=== PATIENT | female | born 1975 | race Caucasian/White ===

== ENCOUNTER 2016-11-23 10:37 | Observation (INO) ==
[2016-11-23] MEDS ORDERED: Ondansetron 4 MG/2 ML VIAL IVP ONE (10:57)
[2016-11-23] MEDS ORDERED: Aspirin 325 MG TABLET PO ONE (11:18)
--- NOTE | 2016-11-23 11:18 | Emergency Department Note ---
Disposition Clinical Impression: Palpitations Chest pain Qualifiers: Chest pain type: unspecified Qualified Code(s): R07.9 - Chest pain, unspecified Disposition: Admitted As Inpatient Condition: Good Referrals: NONE,PCP [Primary Care Provider] - Forms: ED Satisfaction Letter Time of Disposition: 12:15 General Adult HPI - General Chief complaint: ED Arrhythmia/Palpitations Stated complaint: Elevated B/P/ Arrhythmia Time Seen by Provider: 11/23/16 10:43 Source: patient Mode of arrival: ambulatory Limitations: no limitations Nursing Notes Reviewed: Yes Vital Signs Reviewed: Yes - History of Present Illness HPI Narrative: 41-year-old female presenting to the emergency department with chief complaint of palpitation and chest pain. She states for the past 3 days she has been having intermittent substernal chest pressure that does not radiate. She states she also feels like her heart is fluttering. Non-exertional with spontaneous resolution. During these episodes she feels diaphoretic and nauseous. She has never had anything like this before. At home she took her blood pressure which was 160 systolic. She has no cardiac history and has no stent placements and is not on anticoagulation. She has significant family history where her father needed a CABG when he was 40 years old. She denies having hypertension, hyperlipidemia, smoking. She denies being on any hormonal treatments, long trips, unilateral leg swelling. She states she has had bilateral leg swelling on and off over the past 3 days. She states she also has shortness of breath during these episodes. The shortness of breath only occurs when she has chest pain and palpitations. She denies pain at this time. She is resting comfortably in the room with stable vital signs. Pain Scale: 0 - Related Data Previous Rx's Medication Instructions Recorded Hydrocodone/Acetaminophen [[place] 1 - 2 each PO Q6H PRN #15 tablet 06/11/15 5-325 Tablet] Ibuprofen [Motrin] 600 mg PO Q8HR PRN #20 tab 06/11/15 Allergies Allergy/AdvReac Type Severity Reaction Status Date / Time No Known Allergies Allergy Verified 06/11/15 13:39 All systems ED: reviewed and negative except as stated. Cardiovascular: Reports: chest pain, palpitations Respiratory: Reports: dyspnea Gastrointestinal: Reports: nausea Past Medical History - Past Medical History Attestation: Yes The following information was validated with the patient. Source: patient Medical history: Reports: GERD Surgical history: Reports: hysterectomy Psychiatric history: Reports: no psych history - Social History Smoking Status: Current every day smoker Smokeless Tobacco Status: No Alcohol use: Reports: none Drug use: Reports: none Physical Exam - General Limitations: no limitations General appearance: alert, in no apparent distress - Head Head exam: atraumatic, normocephalic, normal inspection - Eye Eye exam: Present: normal appearance - Neck Neck exam: Present: normal inspection - Chest Chest inspection: Present: normal inspection, symmetric chest wall rise. Absent : tenderness - Respiratory Respiratory exam: Present: normal lung sounds bilaterally. Absent: respiratory distress, wheezes, stridor - Cardiovascular Cardiovascular exam: Present: regular rate, normal rhythm, normal heart sounds - Abdominal Exam Abdominal exam: Present: soft, Non-Tender. Absent: distention, guarding, rebound - Extremities Exam Extremities exam: Present: normal inspection, full ROM - Neurological Exam Neurological exam: Present: alert, oriented X3 - Psychiatric Psychiatric exam: Present: normal affect - Skin Skin exam: Present: warm, dry, intact Course Course Narrative: 41-year-old female presenting to the emergency department with chief complaint of chest pain and palpitations. Due to significant family history and history of present illness we will begin a chest pain workup along with d-dimer. We will reevaluate the patient. She is stable in the room and is resting comfortably. - Reevaluation(s) Reevaluation #1: Follow-up or has returned within normal limits. Due to significant family history and history of present illness we will admit the patient for chest pain rule out. A call to the hospitalist was completed. Time: 11:57 Reevaluation #2: Dr. Morton accepts the patient. Time: 12:14 Vital Signs Temperature 97.8 F 11/23/16 10:39 Pulse Rate 92 11/23/16 10:39 Respiratory Rate 16 11/23/16 10:39 Blood Pressure 177/91 11/23/16 10:39 O2 Sat by Pulse Oximetry 96 11/23/16 10:39 Temperature 97.8 F 11/23/16 10:39 Pulse Rate 76 11/23/16 11:30 Respiratory Rate 18 11/23/16 11:30 Blood Pressure 147/78 11/23/16 11:30 O2 Sat by Pulse Oximetry 98 11/23/16 11:30 Oxygen Delivery Oxygen Delivery Room Air Medical Decision Making - Medical Records Medical records reviewed: Yes I reviewed the patient's medical records. - Lab Data Lab results reviewed: Yes I reviewed the patient's lab results. Lab Results 11/23/16 11/23/16 11/23/16 Range/Units 11:07 11:07 11:07 D-Dimer 392 (0-500) ng/mLFEU Troponin I 0.00 (0-0.03) ng/mL B-Natriuretic Peptide < 10 (0-100) pg/mL TSH (0.350-4.840) mcIU/mL 11/23/16 Range/Units 11:07 D-Dimer (0-500) ng/mLFEU Troponin I (0-0.03) ng/mL B-Natriuretic Peptide (0-100) pg/mL TSH 2.339 (0.350-4.840) mcIU/mL - Radiology Data Radiology results reviewed: Yes I reviewed the patient's radiology results. - EKG Data EKG #1 EKG attestation: Yes I reviewed and interpreted this EKG. EKG results narrative: 78 bpm. Normal sinus rhythm. Normal axis. KS interval 127 ms, QRS 87 ms, QTC [address] segment elevation or abnormalities noted and no signs of ischemia on this EKG. When compared to previous EKG completed on 02/13/14 no significant changes noted. Attestation Statement - Attestation Attestation: Patient was seen with resident physician. I reviewed the history, physical, assessment and plan, and agree with the findings. I also personally evaluated this patient and had [id number] time with this patient. 41-year-old female presents to the emergency department with a chief complaint of chest pain. Patient states for the last 4 days she has had intermittent chest pressure in the middle of her chest since associated with diaphoresis and the sensation of palpitations. Patient states that she has not had anything like this in the past. She has had a stress test in the past which was multiple years ago. She is a strong family history for cardiac disease which includes a mother that in her 50s and a father who had his first heart attack in his 40s. She currently is pain-free. She is not taking any medications. The symptoms occur at rest and not necessarily with activity. ED course vital signs initially blood pressure was slightly elevated but otherwise stable. ENT is unremarkable. Heart and lungs are both normal. Abdomen is soft and nontender. Extremities unremarkable. Neurologically intact. ED course initial workup included EKG which was normal. Troponin and d-dimer were both negative. Other labs are unremarkable. Because of the patient's history and age as well as her family history we will admit the patient to the hospitalist service for further evaluation and treatment and rule out. Patient was comfortable with this plan and she was comfortable on the emergency department. Agree with the resident physician assessment and plan.
[2016-11-23 12:21] LABS: Basophils % 0.3 %; Eosinophils # 0.2 K/mcL (0.0-0.6); Eosinophils % 1.3 %; Hematocrit 43.2 % (35.3-44.9); Immature Granulocytes % 0.4 % (0-4); Lymphocytes # 3.8 K/mcL (0.6-4.6); Lymphocytes % 28.4 %; Mean Corpuscular HGB Conc 34.7 g/dL (31.6-35.5); Mean Corpuscular Hemoglobin 29.2 pg (28.0-33.3); Mean Corpuscular Volume 84.2 fL (83.0-100.0); Mean Platelet Volume 8.5 fL (9.4-12.4); Monocytes % 7.2 %; Neutrophils # 8.3 K/mcL (1.6-8.9); Platelet Count 217 K/mcL (140-400); Red Blood Count 5.13 M/mcL (3.82-4.97); Red Cell Distribution Width 12.1 % (11.5-14.5); Segmented Neutrophils % 62.4 %
[2016-11-23 12:34] LABS: BUN/Creatinine Ratio 15 (6-26); Blood Urea Nitrogen 9 mg/dL (7-20); Carbon Dioxide 25 mEq/L (19-29); Chloride 106 mEq/L (98-109); Glucose 90 mg/dL (70-99); Osmolality,Calculated 282 (280-300); Potassium 4.2 mEq/L (3.5-4.5); Sodium 137 mEq/L (136-145); eGFR For African Americans > 60 (> 60); eGFR For Non-African Americans > 60 (> 60)
[2016-11-23] MEDS ORDERED: *HR* Morphine 2 MG/ML SYRINGE IVP PRN (12:36)
[2016-11-23] MEDS ORDERED: *HR* HYDROcodone/Acet 5/325 mg TABLET PO PRN (12:36)
[2016-11-23] MEDS ORDERED: Ondansetron 4 MG/2 ML VIAL IVP PRN (12:36)
[2016-11-23] MEDS ORDERED: Naloxone 0.4 MG/ML INJ IVP PRN (12:36)
--- NOTE | 2016-11-23 13:10 | Internal Med History&Physical ---
<Jonny Doan - Last Filed: 11/23/16 13:58> Date of Encounter: 11/23/16 Time of Encounter: 12:15 Assessment and Plan (1) Chest pain Current visit: Yes Status: Acute Patient presents with new onset of chest pain that she reports has been occurring since last . She reports that the pain came on while she was at rest and she also felt her heart flutter and she describes the pain as sharp pain at the sternum and across her breasts that comes and goes. She also states that she became nauseous, short of breath, and diaphoretic. The patient denies any cardiac history but reports she had an exercise stress test several years ago when she was diagnosed with sleep apnea. Patient's EKG of 02/13/14 and today both show normal sinus rhythm and normal ECG. Patient to be placed on continuous cardiac telemetry, troponins to be trended x2, and nuclear pharm stress test scheduled. Nitroglycerin ordered PRN. Patient to be bed rest with bathroom privileges. Cardiac diet ordered and patient to be NPO at midnight for a.m. stress testing. Will consider cardiology consult based on results of the nuclear pharm stress test. Patient to be monitored closely for signs of increasing cardiac and/or respiratory distress. Qualifiers: Chest pain type: other chest pain Qualified Code(s): R07.89 - Other chest pain; R07.8 - Other chest pain (2) SOB (shortness of breath) Current visit: Yes Status: Acute Patient reports mild dyspnea related to her symptoms of chest pain. Patient's SpO2 in the ED is 96% on room air and her RR is 16 and regular on examination. Patient will be placed on CPAP HS for her chronic sleep apnea. Will administer O2 via nasal cannula at 2L as well as continuous SpO2 monitoring if patient shows signs of dyspnea. Will monitor patient and vital signs. (3) HTN (hypertension) Current visit: Yes Status: Acute Patient presents with acute HTN in conjunction with her current symptoms of chest pain. Patient's BP on admission to the ED was 177/91. Patient reports her BP was elevated last night prior to bed and was 181/88. Patient currently denies any history of HTN or medications for HTN. Will monitor patient and vital signs and consider adding low-dose Lopressor if patient's BP continues to be elevated. Qualifiers: Hypertension type: other secondary hypertension Qualified Code(s): I15.8 - Other secondary hypertension (4) Sleep apnea Current visit: Yes Status: Chronic Patient presents with history of chronic sleep apnea. Patient denies use of home O2 but reports use of CPAP nightly. Will continue CPAP HS. Qualifiers: Sleep apnea type: obstructive Qualified Code(s): G47.33 - Obstructive sleep apnea (adult) (pediatric) (5) GERD (gastroesophageal reflux disease) Current visit: Yes Status: Chronic Patient presents with history of chronic GERD. IV Zofran ordered PRN. IVP Protonix 40 mg daily ordered. Qualifiers: Esophagitis presence: esophagitis presence not specified Qualified Code(s) : K21.9 - Gastro-esophageal reflux disease without esophagitis (6) DVT prophylaxis Current visit: Yes Status: Acute Patient placed on DVT prophylaxis due to admission protocol and current bedrest status. Heparin 5,000 units SQ Q8 ordered. Internal Medicine - H&P: HPI Chief complaint: Chest pain Admitted From: Emergency Dept Plans for Post Hospital Care: Home History of present illness: Mrs. Contreras is a 41 year old female who presents from the ED with chief complaint of new onset of chest pain that she reports has been occurring since last . She reports that the pain came on while she was at rest and she also felt her heart flutter and she describes the pain as sharp pain at the sternum and across her breasts that comes and goes. She also states that she became nauseous, short of breath, and diaphoretic. The patient denies any cardiac history, recent illness, vomiting, fever, chills, headache, vision changes, muscle weakness, pre-syncope, or syncope. Patient denies use of home O2 but does reports he uses CPAP HS due to sleep apnea. She reports some bilateral edema of her LEs which she states is not new as well as numbness and tingling in the soles of her feet. Currently she has minor non-pitting pedal edema bilaterally. BP was elevated upon admission to the ED and was 177/91. She reports her BP prior to going to bed was 181/88. She also denies that she has recurrent HTN. Mrs. Contreras's medical history includes GERD. Patient's EKG today and previous EKG show normal sinus rhythm and normal ECG. Patient is at moderate risk for cardiac event based on her current symptoms as well as her risk factors of tobacco abuse, BMI of 40.2, and family history of HD and CHF. Patient states she has never had an echocardiopgram that she can remember and states that she had an exercise stress test years ago when she was diagnosed with sleep apnea. Patient is placed on continuous cardiac telemetry, troponins trended 2, and nuclear pharm stress test. Patient to be monitored closely for signs of increasing cardiac and/or respiratory distress. Will consider cardiology consult based on the results of the stress test. Time spent with patient >30 minutes. Past Med Surg Social Fam HX - Past Medical History Source: patient Medical history: GERD Psychiatric history: no psych history - Past Surgical History Surgical History: hysterectomy - Social History Smoking Status: Current every day smoker Packs per day: < 1 PPD Smokeless Tobacco Status: No Alcohol use: none Drug use: none Occupational status: employed Current living situation: Home, With Family Activity Level: Independent ambulation, Very active Recent Out of Country Travel Within the Last 8 Weeks: No Exposure or Possible Exposure to Illness During Travel: No - Family History Father Race: Family Member Ethnicity: Non- Living Status: Still Living Hx Family Cardiac Disorders: Yes (OR w/stents, HTN, HD) Mother Race: Family Member Ethnicity: Non- Living Status: Age at : 56 Hx Family Cardiac Disorders: Yes (CHF) Hx Family Respiratory Disorders: Yes (Asthma) Brother Race: Family Member Ethnicity: Non- Living Status: Still Living Hx Family Medical Disorders: No Sister Race: Family Member Ethnicity: Non- Living Status: Still Living Hx Family Endocrine Disorder: Yes (Hypoglycemia) Internal Medicine - H&P: Meds Esomeprazole Magnesium [Nexium] 40 mg PO DAILY PRN 11/23/16 [History] Allergies No Known Allergies Allergy (Verified 06/11/15 13:39) All Systems PM: A 10-system review of systems was performed and is negative for pertinent findings except as documented above in the HPI. - Constitutional Constitutional: as per HPI, excessive sweating, fatigue, no chills, no fever(s) , no night sweats - EENT Eyes: no change in vision, no discharge, no pain, no photophobia Ears: no ear discharge, no ear pain, no tinnitus Nose, mouth and throat: no dysphagia, no nasal discharge, no neck pain, no sore throat - Breasts Breasts: as per HPI - Cardiovascular Cardiovascular ROS IM: as per HPI, chest pain, diaphoresis, dyspnea, edema, irregular heart rhythm - Respiratory Respiratory: as per HPI, dyspnea, no cough, no wheezing, no excessive phlegm production - Gastrointestinal Gastrointestinal: as per HPI, heartburn, nausea - Genitourinary Genitourinary: no change in urinary stream, no dysuria, no flank pain, no hematuria Menstruation: as per HPI, post hysterectomy - Musculoskeletal Musculoskeletal ROS IM: as per HPI, numbness, tingling - Integumentary Integumentary IM: no rash, no unusual bruising - Neurological Neurological ROS: no confusion, no convulsions, no focal weakness, no numbness, no tingling, no tremor(s) - Psychiatric Psychiatric: as per HPI - Endocrine Endocrine IM: as per HPI - Hematologic/Lymphatic Hematologic/Lymphatic: no easy bruising - Allergic/Immunologic Allergic/Immunologic: as per HPI - Constitutional Vitals: Temp Pulse Resp BP Pulse Ox 97.8 F 76 18 147/78 98 11/23/16 10:39 11/23/16 11:30 11/23/16 11:30 11/23/16 11:30 11/23/16 11:30 General appearance: Present: cooperative, A&O X 3, pleasant, no acute distress, obese, answers questions appropriately - Head Head exam: Present: atraumatic, normocephalic - Eye Eye exam: Present: PERRL, conjuntiva pink, sclera anicteric Pupils: Present: PERRL - ENT ENT exam: Present: normal exam, normal external ear exam - Neck Neck exam general surgery: Present: supple, trachea midline. Absent: lymphadenopathy - Respiratory Respiratory exam: Present: CTAB. Absent: accessory muscle use, rales, rhonchi, wheezes - Cardiovascular Cardiovascular exam: Present: RRR, +S1, +S2. Absent: diastolic murmur, gallop, rubs, systolic murmur - GI/Abdominal GI/Abdominal exam: Present: normal bowel sounds, soft, no peritoneal signs. Absent: distended, tenderness - Rectal Rectal exam: Present: deferred - Additional comments: exam deferred. - Extremities Exam Extremities exam: Present: pedal edema (Non-pitting bilaterally), warm, radial pulses palpable and symetrical. Absent: calf tenderness, cyanotic - Back Exam Back exam: Present: normal inspection - Neurological Exam Neurological exam: Present: CN II-XII intact, oriented X3, no focal deficits. Absent: pronater drift, facial droop, speech deficit - Psychiatric Psychiatric exam: Present: normal affect, normal mood - Skin Skin exam: Present: dry, intact Internal Med - H&P Results - Labs CBC & Chem 7: 11/23/16 12:16 11/23/16 12:16 - EKG Data EKG shows normal: sinus rhythm Rate: normal - EKG Data Prior EKG available for review: yes When compared to previous EKG: there is no significant change Interpretation IM: normal EKG EKG comments: 11/23/16 13:15 EKG dated 02/13/14 shows sinus rhythm and normal ECG. EKG dated 11/23/16 shows sinus rhythm and normal ECG. - Diagnostic Studies Chest x-ray Additional comments: Impressions Chest X-Ray 11/23/16 10:54 IMPRESSION: Negative portable study. D/ / Ara Hatch Cha, MD / Ara Hatch Cha, MD Interpreting Provider: Ara Hatch Cha, MD <Nathaniel Morton - Last Filed: 11/23/16 14:39> Date of Encounter: 11/23/16 Internal Medicine - H&P: HPI History of present illness: Ms. Contreras is a 41 year old female All Systems PM: A 10-system review of systems was performed and is negative for pertinent findings except as documented above in the HPI. - Constitutional Vitals: Temp Pulse Resp BP Pulse Ox 98.2 F 68 16 148/86 97 11/23/16 14:01 11/23/16 14:01 11/23/16 14:01 11/23/16 14:01 11/23/16 14:01 Internal Med - H&P Results - Labs CBC & Chem 7: 11/23/16 12:16 11/23/16 12:16 - Attending Attestation I have personally performed a face to face evaluation on this patient and I discussed the assessment and plan with the nurse practitioner. I have reviewed and agree with the documented care plan. History and Exam by me shows: Mrs. Contreras is a 41 year old female who presents from the ED with chief complaint of new onset of chest pain that she reports has been occurring since last . She reports that the pain came on while she was at rest and she also felt her heart flutter and she describes the pain as sharp pain at the sternum and across her breasts that comes and goes. Pt denied any cardiac work up before. She also mentioned significant FH , both parents had OR in their early 50's Gen: A, A, O x 3 Heart : S1 S2 +, RRR No murmurs Chest : DBS b/l basal, no rales / no crackles a/p 1. Acute chest pain No KEG changes trend troponins will get exercise stress test in AM since pt does have multiple risk factors 2. HTN Will start her on Metoprolol 3. Tobacco dependence counseled to quit smoking
[2016-11-23] MEDS ORDERED: Nitroglycerin 0.4 MG TAB.SUBL SL PRN (13:21)
[2016-11-23] MEDS: *HR* Heparin 5,000 UNIT/ML VIAL SQ SCH ×2 (14:19→23:26)
[2016-11-23] MEDS: Pantoprazole 40 MG VIAL IVP SCH (14:20)
[2016-11-23] MEDS ORDERED: Melatonin 3 MG TABLET PO PRN (23:18)
[2016-11-24 04:21] LABS: Basophils % 0.4 %; Eosinophils # 0.2 K/mcL (0.0-0.6); Eosinophils % 1.7 %; Hematocrit 41.5 % (35.3-44.9); Hemoglobin 14.1 g/dL (11.5-15.4); Immature Granulocytes % 0.4 % (0-4); Lymphocytes # 3.7 K/mcL (0.6-4.6); Lymphocytes % 33.4 %; Mean Corpuscular Hemoglobin 29.3 pg (28.0-33.3); Mean Corpuscular Volume 86.1 fL (83.0-100.0); Mean Platelet Volume 8.8 fL (9.4-12.4); Monocytes # 0.8 K/mcL (0.0-1.3); Monocytes % 7.3 %; Neutrophils # 6.4 K/mcL (1.6-8.9); Platelet Count 210 K/mcL (140-400); Red Blood Count 4.82 M/mcL (3.82-4.97); Red Cell Distribution Width 12.3 % (11.5-14.5); Segmented Neutrophils % 56.8 %
[2016-11-24 04:26] LABS: INR 1.1; Prothrombin Time 12.1 Seconds (9.4-12.1)
[2016-11-24 04:29] LABS: Activated Partial Thrombo Time 31.8 Seconds (26.0-36.0)
[2016-11-24 04:36] LABS: Chol/HDL Ratio 5.8 (0-4.9); Magnesium 1.5 mg/dL (1.6-2.6)
[2016-11-24] MEDS ORDERED: Regadenoson 0.4 MG/5 ML SYRINGE IVP ONE (06:09)
[2016-11-24] MEDS: *HR* Heparin 5,000 UNIT/ML VIAL SQ SCH ×3 (06:18→20:48)
[2016-11-24] MEDS: Acetaminophen 325 MG TABLET PO PRN (06:23)
[2016-11-24] MEDS: Pantoprazole 40 MG VIAL IVP SCH (09:25)
[2016-11-24] MEDS: Aspirin 81 MG TAB.CHEW PO SCH (09:25)
--- NOTE | 2016-11-24 15:23 | Internal Med Progress Note ---
Date of Encounter: 11/24/16 Time of Encounter: 14:00 - Assessment and plan (1) Chest pain Current Visit: Yes Status: Resolved Assessment and plan: Patient currently denies chest pain. Troponins negative 3. Second part of patient's stress test is tomorrow. Initially, plan was to let the patient go home and then return tomorrow for the second part of her stress test however she does not have a primary care provider and therefore cannot be done on an outpatient basis. Patient will stay the night for the second part of her stress test tomorrow. Started on hypertensive medications. Patient very upset stating "I need a cigarette". She declines patches but will try the gum. She will need to be set up with a primary care provider because she needs outpatient PFTs for likely COPD diagnosis. ITS Impressions Chest X-Ray 11/23/16 10:54 IMPRESSION: Negative portable study. D/ / Ara Hatch Cha, MD / Ara Hatch Cha, MD Interpreting Provider: Ara Hatch Cha, MD Qualifiers: Chest pain type: other chest pain Qualified Code(s): R07.89 - Other chest pain; R07.8 - Other chest pain (2) SOB (shortness of breath) Current Visit: Yes Status: Resolved Assessment and plan: Patient currently denies shortness of breath above her norm. She is a heavy tobacco abuser, not on any home medications. Suspect she may have undiagnosed COPD she does not have a primary care provider, she will need to follow up outpatient for PFTs. We will trial breathing treatments and see her response. (3) Palpitations Current Visit: Yes Status: Resolved (4) Sleep apnea Current Visit: Yes Status: Chronic Assessment and plan: Patient endorses compliance with CPAP Qualifiers: Sleep apnea type: obstructive Qualified Code(s): G47.33 - Obstructive sleep apnea (adult) (pediatric) (5) GERD (gastroesophageal reflux disease) Current Visit: Yes Status: Chronic Assessment and plan: Denies current symptoms Qualifiers: Esophagitis presence: esophagitis presence not specified Qualified Code(s) : K21.9 - Gastro-esophageal reflux disease without esophagitis (6) HTN (hypertension) Current Visit: Yes Status: Chronic Assessment and plan: She has been borderline hypertensive at times since she has presented to the hospital. We will add amlodipine and monitor. Her heart rate is been in the low 60s, will avoid beta blockers at this time Qualifiers: Hypertension type: other secondary hypertension Qualified Code(s): I15.8 - Other secondary hypertension (7) DVT prophylaxis Current Visit: Yes Status: Acute Assessment and plan: Subcutaneous heparin (8) Nicotine dependence Current Visit: Yes Status: Chronic Assessment and plan: Patient has continually stated that she needs a cigarette. She was informed of hospital policy. She can have nicotine replacement until midnight tonight. She states she cannot tolerate patch, will order gum Qualifiers: Nicotine product type: cigarettes Substance use status: in withdrawal Qualified Code(s): F17.213 - Nicotine dependence, cigarettes, with withdrawal - Subjective Interval history: Patient seen and examined. On examination, patient sitting upright in her bed. Patient denies chest pain or shortness of breath. She is endorsing a normal appetite. Patient stating she wants to go home and return tomorrow for the second part of her stress test. Patient continually stating "I need a cigarette." - Constitutional Vitals: Temp Pulse Resp BP Pulse Ox 98.1 F 65 14 156/86 96 11/24/16 15:09 11/24/16 15:09 11/24/16 15:09 11/24/16 15:09 11/24/16 15:09 General appearance: Present: cooperative, A&O X 3, pleasant, no acute distress, obese, answers questions appropriately - Head Head exam: Present: atraumatic, normocephalic - Eye Eye exam: Present: PERRL, conjuntiva pink, sclera anicteric Pupils: Present: PERRL - Neck Neck exam general surgery: Present: supple, trachea midline. Absent: lymphadenopathy - Respiratory Respiratory exam: Present: decreased breath sounds, wheezes. Absent: accessory muscle use, rales, respiratory distress, rhonchi - Cardiovascular Cardiovascular exam: Present: RRR, +S1, +S2. Absent: diastolic murmur, gallop, rubs, systolic murmur - GI/Abdominal GI/Abdominal exam: Present: normal bowel sounds, soft, no peritoneal signs. Absent: distended, tenderness - Extremities Exam Extremities exam: Present: warm, radial pulses palpable and symetrical. Absent : calf tenderness, cyanotic, pedal edema - Neurological Exam Neurological exam: Present: alert, CN II-XII intact, normal gait, oriented X3, no focal deficits, strengths equal and symetr throughout. Absent: pronater drift, facial droop, speech deficit - Skin Skin exam: Present: dry, intact, normal color, warm Internal Medicine: Result - Labs CBC & Chem 7: 11/24/16 03:25 11/23/16 12:16 Labs: Short CBC 11/24/16 Range/Units 03:25 WBC 11.2 H (4.3-11.1) K/mcL Hgb 14.1 (11.5-15.4) g/dL Hct 41.5 (35.3-44.9) % Plt Count 210 (140-400) K/mcL Neutrophils # 6.4 (1.6-8.9) K/mcL Cardiac Enzymes 11/23/16 11/23/16 Range/Units 16:40 22:25 Troponin I 0.01 0.00 (0-0.03) ng/mL - ABG Interpretation ABG results: PT/INR, D-dimer PT 12.1 Seconds (9.4-12.1) 11/24/16 03:25 D-Dimer 392 ng/mLFEU (0-500) 11/23/16 11:07 Consult Discharge Plan - Plan Referrals: NONE,PCP [Primary Care Provider] -
[2016-11-24] MEDS ORDERED: Nicotine 2 MG GUM BC PRN (15:24)
[2016-11-24] MEDS: amLODIPine 5 MG TABLET PO SCH (16:12)
[2016-11-24] MEDS: Budesonide/Formoterol 80/4.5 MDI IH SCH ×2 (17:01→20:25)
--- NOTE | 2016-11-24 17:45 | Electrocardiograph Report ---
[place] [id number] Test Date: 2016-11-23 Pat Name: Cecilia Contreras Department: 104 Room: 3B Gender: F System Validation Engineer: RENA : 1975 Requested By: Fanta Hoffman Order Number: [id number] Reading MD: Kesha Gutierrez Measurements Intervals [place] Rate: 78 P: 14 CT: 127 QRS: 44 QRSD: 87 T: 45 QT: 374 QTc: 408 Interpretive Statements SINUS RHYTHM Electronically Signed On 11-24-2016 17:44:03 EDT by Kesha Gutierrez
[2016-11-25] MEDS: *HR* Heparin 5,000 UNIT/ML VIAL SQ SCH ×2 (03:13→14:56)
[2016-11-25] MEDS: Acetaminophen 325 MG TABLET PO PRN (04:27)
[2016-11-25] MEDS: Budesonide/Formoterol 80/4.5 MDI IH SCH (08:21)
--- NOTE | 2016-11-25 10:28 | Nuclear Medicine Stress Report ---
Regadenoson Nuclear 2 day Name: Cecilia Contreras Date of Study: 11/24/2016 Date: 1975 Ht: 66.0 in Medical Record#: [id number] Age: 41 Wt: 244.0 lb Gender: Female Order #: [id number] Location: [facility] Room: [facility] Supervising Provider: Yamilka Galeas CNP Reading Physician: Faustino Leblanc DO, FACC, FASNC Ordering Physician: Fanta Taylor CNP Primary Care Physician: Cassius Stress Technologist: Cristóbal Troncoso CRT Front Desk Receptionist: Mj Hay Indications: Chest Pain Impression: Pharmacologic stress ECG is negative for ischemia at level of heart rate achieved. Gated EF = 59%. Perfusion imaging was negative for ischemia or infarct. History: Hypercholesteremia History of Smoking Stress Test Summary: Stress Test Type: Pharmacologic Regadenoson 0.4mg/5ml given IV Baseline Information: Initial Heart Rate: 66 Blood Pressure: 118/70 Stress Information: Test Terminated Due to (primary): As per protocol Maximum Blood Pressure: 132/64 Maximum Heart Rate: 101 Percent Maximum Heart Rate Achieved: 57 Double Product: 39303 METS Reached: 1 Symptoms: No chest symptoms Nuclear Summary: SPECT myocardial perfusion imaging using Tc99m Sestamibi given intravenously was performed at rest and following cardiac stress testing. The resting images were obtained following initial dose of 34.6 mCi. Following stress an additional dose of 32.4 mCi was given at peak exercise or 30 seconds post regadenoson infusion. Medication Given: Time Medication Dose Units Route Findings: Stress Note * Resting ECG demonstrated normal sinus rhythm. * No baseline arrhythmias were noted. * Pharmacologic stress ECG is negative for ischemia at level of heart rate achieved. * No arrhythmias were noted during stress. * Patient had no chest pain during stress. * Normal hemodynamic responses to pharmacologic stress. Study Quality * Study quality is average. Gated EF % * Gated EF = 59%. Left Ventricle * The left ventricle is not dilated. LVEDV = 121 mL. NORMALS * Normal wall motion. * Normal Segmental Perfusion in rest. * Normal segmental perfusion in stress. TID * No evidence of transient ischemic dilatation. TID ratio = 1.01. Lung Uptake * There is no evidence of increase lung uptake. Updated by Faustino Leblanc DO, FACC, FASE, FASNC on 11/25/2016 10:20:56 AM electronically signed on 11/25/2016 10:21:58 AM with status of Final
[2016-11-25] MEDS: amLODIPine 5 MG TABLET PO SCH (11:00)
[2016-11-25] MEDS: Aspirin 81 MG TAB.CHEW PO SCH (11:00)
[2016-11-25] MEDS: Pantoprazole 40 MG VIAL IVP SCH (11:01)
[2016-11-25 16:02] VITALS: BP 145/90
--- NOTE | 2016-11-25 16:36 | Discharge Summary ---
Date of Encounter: 11/25/16 Time of Encounter: 13:35 - Discharge Diagnosis (1) Chest pain Priority: Secondary Status: Resolved Comments: Pt reports intermittent mid chest pain without radiation, lasting about 5-10 minutes for 5 days. Pt states that it can occur at rest or with exertion. She denies nausea, but does report SOB and diaphoresis. She denies pattern or contributing factors. States that she has been on vacation for a week and is under no stress currently. Troponins negative. Chest xray negative. Stress test negative for ischemia or infarct, gated DR 59%. EKG NSR, rate 78, DE 127, PRS 87 , QTc 408. Pt denies chest pain currently. Pt is not reproducible with palpation , movment or deep inspiration. Qualifiers: Chest pain type: other chest pain Qualified Code(s): R07.89 - Other chest pain; R07.8 - Other chest pain (2) SOB (shortness of breath) Priority: Secondary Status: Resolved Comments: Pt denies SOB at this time. She denies SOB with exertion. Pt is a smoker and states that she is not ready to stop smoking. Pt will need to establish with PCP for continued evaluation. (3) GERD (gastroesophageal reflux disease) Priority: Secondary Status: Chronic Comments: Chronic. Continue home medications. Qualifiers: Esophagitis presence: esophagitis presence not specified Qualified Code(s) : K21.9 - Gastro-esophageal reflux disease without esophagitis (4) HTN (hypertension) Priority: Secondary Status: Chronic Comments: Pt just at goal today but has been hypertensive during admission. will add low dose lopressor at discharge. pt will need to follow up with PCP for further evaluation and managment. Qualifiers: Hypertension type: other secondary hypertension Qualified Code(s): I15.8 - Other secondary hypertension (5) Sleep apnea Priority: Secondary Status: Chronic Comments: CPAP nightly, continue inpatient. Qualifiers: Sleep apnea type: obstructive Qualified Code(s): G47.33 - Obstructive sleep apnea (adult) (pediatric) (6) DVT prophylaxis Priority: Secondary Status: Acute Comments: Heparin subcutaneously - Discharge Medications Prescriptions: Metoprolol [Lopressor] 12.5 mg PO BID #30 tablet Home Medications: Esomeprazole Magnesium [Nexium] 40 mg PO DAILY PRN 11/23/16 [History] Aspirin 81 mg PO DAILY 11/25/16 [Rx] Metoprolol [Lopressor] 12.5 mg PO BID #30 tablet 11/25/16 [Rx] Allergies/Adverse Reactions: Allergies No Known Allergies Allergy (Verified 06/11/15 13:39) Procedures/tests Complete & Pending: Procedures Performed prior 72 hours Category Date Time Status NM tushar perf SPECT multi [NM] Routine Exams 11/24/16 08:00 Taken SP pharm nuclear stress Routine Y 11/24/16 07:15 Completed Date of admission: 11/23/16 12:34 Primary care physician: PCP NONE Discharging clinician: Jerica Austin Anticipated date of discharge: 11/25/16 - Patient Status Disposition: Home, Self-Care Functional capacity at discharge: independent ambulation Overall status at discharge: patient is back to baseline - Discharge Instructions Follow Up With: Oniel Hudson Jr, [employer]PER[employer] [Advanced Practice Nurse] - 12/02/16 9:00 am Additional Instructions: Follow up with Oniel Callaway on 12/02 as scheduled. Return to the ER as needed for any other problems or concerns or if your symptoms return or worsen Start taking your new medication tomorrow. Monitor your blood pressures and pulse Stop smoking - Diet and Activity Activity: resume usual activities as tolerated Diet: diabetic diet Hospital course: Ms. Contreras is a 41 year old female who presents to the ED for 3 day history of palpitations and chest pressure without radiation. Pt states that it can start at rest or with exertion and lasts anywhere from 5-10 minutes. Pt denies past medical history other than GERD. Pt has been pain free today. Chest xray was negative, troponins were negative. EKG was NSR with no ST changes. Stress test negative for ischemia or infarct, gated EF 55%. Pt is a smoker and is not interested in smoking cessation tools or materials now. BP is also at goal during admission, however, at admission, she was hypertensive, as she was at home. Pt will be started on low dose metoprolol and aspirin 81mg daily. Pt does not have a PCP and has an initial appointment with Oniel Callaway at [facility] on 12/02. Pt is aware that she will need to be released to return to work by him. Labs have been WNL, as have vitals. Pt is stable and ready for discharge. Time spent discussing smoking cessation with patient: 3 to 10 minutes - Time Spent with Patient Total time spent providing and/or coordinating discharge services: Less than 30 minutes - Constitutional Vitals: Temp Pulse Resp BP Pulse Ox 98 F 76 14 145/90 93 11/25/16 16:00 11/25/16 16:00 11/25/16 16:00 11/25/16 16:00 11/25/16 16:00 General appearance: Present: cooperative, A&O X 3, pleasant, no acute distress, obese, answers questions appropriately - Head Head exam: Present: normal inspection - Eye Eye exam: Present: normal appearance, conjuntiva pink - ENT ENT exam: Present: mucous membranes moist, normal exam, normal external ear exam - Neck Neck exam general surgery: Present: normal inspection. Absent: lymphadenopathy , tenderness - Respiratory Respiratory exam: Present: decreased breath sounds, CTAB. Absent: rales, respiratory distress, rhonchi, stridor, wheezes - Cardiovascular Cardiovascular exam: Present: RRR, +S1, +S2. Absent: bradycardia, diastolic murmur, systolic murmur, tachycardia - GI/Abdominal GI/Abdominal exam: Present: distended, normal bowel sounds, soft. Absent: hepatomegaly, tenderness - Extremities Exam Extremities exam: Present: normal inspection, warm, radial pulses palpable and symetrical. Absent: pedal edema, tenderness - Neurological Exam Neurological exam: Present: alert, oriented X3, no focal deficits. Absent: facial droop, speech deficit - Skin Skin exam: Present: dry, intact, warm
== END 2016-11-25 17:36 | disposition home or self-care (01) ==
LOC: 3BNU 10:37 → EMEROO 10:37 → 3BNU 13:06
PROVIDERS: ADMIT Family Medicine; ATTEND Nurse Practitioner Family